=== PATIENT | male | born 1955 | race Caucasian/White ===

== ENCOUNTER 2017-11-18 18:21 | Emergency (ER) | payer SELFPAY ==
[~2017-11-18 18:21] MED LIST: ALPR-429 PO; ONDA4TAB97 PO; OXYC-865 PO; PANT40SU3 PO; QUET400T11 PO
[2017-11-18] MEDS ORDERED: ALPR-429 PO (18:33)
[2017-11-18] MEDS ORDERED: QUET200T29 PO (18:33)
[2017-11-18] MEDS ORDERED: NS(*) 0.9% 1000 ML BAG 1,000 ML IV ONE (18:48)
[2017-11-18] MEDS ORDERED: fentaNYL CITR 100 MCG/2 ML AMP IVP ONE (18:50)
--- NOTE | 2017-11-18 18:52 | ER Report ---
History and Physical Time Seen By MD: 18:37 Hx. of Stated Complaint: PATIENT STATES THAT HE HAS ALOT OF PAIN IN HIS KIDNEY AND PELVIC AREA HPI/ROS CHIEF COMPLAINT: Right flank pain HISTORY OF PRESENT ILLNESS: 62-year-old male patient presents to emergency room with complaint of right flank pain. Patient states that he's been having this pain starting today. States the pain is an 8 out of 10. He denies having any fevers or chills. Patient states that he does have a history of kidney stones. He states that he had a partial nephrectomy in 1997 due to the kidney stones. Patient states he does not believe that he has any stones in his ureters just in his kidney. He denies having any nausea, vomiting or diarrhea. Patient has taken any medication for this. He has had a prescription for narcotic pain medicines in the past, however he is not having currently. Patient does have a urologist that he sees in [place]. Patient states that he had a CT scan approximately one month ago. He states that CT scan showed some "multiple holes " in his pelvis. REVIEW OF SYSTEMS: Respiratory: No cough, no dyspnea. Cardiovascular: No chest pain, no palpitations. Gastrointestinal: No vomiting, no abdominal pain. Musculoskeletal: As noted above Allergies: Coded Allergies: shellfish derived (Verified Allergy, Unknown, 11/18/17) morphine (Verified Adverse Reaction, Severe, ITCHING/ YELLING, 06/11/16) Home Meds Active Scripts Ondansetron (ZOFRAN ODT) 4 Mg Tab.rapdis, 4 MG PO Q6H Y for NAUSEA/VOMITING, # 20 TAB.KIM Prov:KINGSTON LEE 11/18/17 Blood-Glucose Meter, Drum-Type (ACCU-CHEK) 1 Each Kit, EACH MC DAILY, #1 Prov:KNIGSTON LEE 11/18/17 Azithromycin 250 Mg Tab (AZITHROMYCIN 250 MG TAB) 250 Mg Tablet, 1 TAB PO QDAY, #6 TAB Take 2 tabs today and then 1 tab a day until gone. Prov:KINGSTON LEE 11/18/17 Metformin Hcl (METFORMIN HCL) 500 Mg Tablet, 1 TAB PO BID, #60 TAB Prov:KINGSTON LEE 11/18/17 Oxycodone Hcl/Acetaminophen (PERCOCET 5-325 MG TABLET) 1 Each Tablet, 1 EACH PO Q4-6H Y for PAIN, #8 TAB Prov:KINGSTON LEE BUILDING [employer]PENTER 11/18/17 Reported Medications Alprazolam (XANAX) 0.5 Mg Tablet, 1 MG PO TID, TAB 11/18/17 Quetiapine Fumarate (SEROQUEL) 200 Mg Tablet, 200 MG PO 11/18/17 Pantoprazole Sodium (PROTONIX) 40 Mg Granpkt.dr, 40 MG PO QDAY, PACK 06/11/16 Discontinued Reported Medications Alprazolam (XANAX) 0.5 Mg Tablet, 1 TAB PO TID, TAB 06/11/16 Quetiapine Fumarate (SEROQUEL) 400 Mg Tablet, 600 MG PO HS 06/11/16 Discontinued Scripts Ondansetron Hcl (ZOFRAN) 4 Mg Tablet, 4 MG PO Q6H Y for NAUSEA/VOMITING, #10 Prov:SANDRA BORJAS DO 06/11/16 Oxycodone Hcl/Acetaminophen (PERCOCET 5-325 MG TABLET) 1 Each Tablet, 1 EACH PO Q4-6H Y for PAIN, #15 Prov:SANDRA BORJAS DO 06/11/16 Past Medical/Surgical History Patient has a past medical history of a GI bleed, kidney stones, bipolar. Patient has surgical history of partial nephrectomy. Reviewed Nurses Notes: Yes Hx Substance Use Disorder: No Hx Alcohol Use: No Constitutional Vital Sign - Last 24 Hours 11/18/17 11/18/17 11/18/17 11/18/17 18:26 18:30 18:45 19:00 Temp 98.7 Pulse 117 111 113 123 Resp 17 B/P (MAP) 137/92 144/93 (110) 152/101 (118) Pulse Ox 94 94 93 92 O2 Delivery Room Air 11/18/17 11/18/17 11/18/17 11/18/17 19:15 19:30 19:45 19:53 Temp 99.9 Pulse 113 106 ??? B/P (MAP) 154/96 (115) Pulse Ox 91 93 11/18/17 11/18/17 11/18/17 20:00 20:15 20:30 Pulse ??? 89 92 B/P (MAP) 168/98 (121) 140/86 (104) Pulse Ox 91 91 90 Intake and Output 11/18/17 11/18/17 11/19/17 14:59 22:59 06:59 Intake Total 1000 ml Balance 1000 ml Physical Exam General Appearance: The patient is alert, has no immediate need for airway protection and no current signs of toxicity. ENT: Tympanic membranes are pearly-florez, auditory canals are patent, mucous membranes are moist. Respiratory: Chest is non tender, lungs are clear to auscultation. Cardiac: regular rate and rhythm Gastrointestinal: Abdomen is soft and non tender, no masses, bowel sounds normal. Patient does have tenderness to the right flank. Musculoskeletal: Neck: Neck is supple and non tender. Extremities have full range of motion and are non tender. Skin: No rashes or lesions. DIFFERENTIAL DIAGNOSIS: After history and physical exam differential diagnosis was considered for flank pain including but not limited to musculoskeletal causes, kidney stone, pyelonephritis, shingles, and intra-abdominal causes such as diverticulitis and appendicitis. Medical Decision Making Data Points Result Diagram: 11/18/17190911/[id number]/171909 Laboratory Hematology Test 11/18/17 18:27 11/18/17 19:10 Urine Color Yellow Urine Clarity Clear Urine pH 6.0 pH (4.8-9.5) Urine Specific [place] 1.014 Urine Protein Negative mg/dL (NEGATIVE) Urine Glucose (UA) 500 mg/dL (NEGATIVE) Urine Ketones Trace mg/dL (NEGATIVE) Urine Blood Small (NEGATIVE) Urine Nitrite Negative (NEGATIVE) Urine Bilirubin Negative (NEGATIVE) Urine Urobilinogen 2.0 mg/dL (0.2-1.9) Urine Leukocyte Esterase Negative (NEGATIVE) Urine RBC 7 /HPF (0-2/HPF) Urine WBC 2 /HPF (0-5/HPF) Urine Squamous Epithelial Cells None /LPF (</=FEW) Urine Bacteria Negative /HPF (NONE-FEW) Urine Mucus None /HPF (NONE-FEW) Red Blood Count 4.86 M/uL (4.00-5.60) Mean Corpuscular Volume 81.6 fL (80.0-96.0) Mean Corpuscular Hemoglobin 27.8 pg (26.0-33.0) Mean Corpuscular Hemoglobin Concent 34.0 g/dL (32.0-36.0) Red Cell Distribution Width 16.1 % (11.5-14.5) Mean Platelet Volume 7.9 fL (7.2-11.1) Neutrophils (%) (Auto) 87.2 % (39.4-72.5) Lymphocytes (%) (Auto) 8.2 % (17.6-49.6) Monocytes (%) (Auto) 4.3 % (4.1-12.4) Eosinophils (%) (Auto) 0.1 % (0.4-6.7) Basophils (%) (Auto) 0.2 % (0.3-1.4) Nucleated RBC Relative Count (auto) 0.0 /100WBC Neutrophils # (Auto) 7.1 K/uL (2.0-7.4) Lymphocytes # (Auto) 0.7 K/uL (1.3-3.6) Monocytes # (Auto) 0.3 K/uL (0.3-1.0) Eosinophils # (Auto) 0.0 K/uL (0.0-0.5) Basophils # (Auto) 0.0 K/uL (0.0-0.1) Nucleated RBC Absolute Count (auto) 0.00 K/uL Erythrocyte Sedimentation Rate 11 mm/HOUR (0-20) Sodium Level 140 mmol/L (137-145) Potassium Level 3.7 mmol/L (3.5-5.0) Chloride Level 103 mmol/L (98-107) Carbon Dioxide Level 24 mmol/L (22-30) Blood Urea Nitrogen 8 mg/dl (9-21) Creatinine 0.90 mg/dl (0.66-1.25) Glomerular Filtration Rate Calc > 60.0 Random Glucose 215 mg/dl (75-110) Calcium Level 9.6 mg/dl (8.4-10.2) Total Bilirubin 0.5 mg/dl (0.2-1.3) Aspartate Amino Transf (AST/SGOT) 26 U/L (0-35) Alanine Aminotransferase (ALT/SGPT) 25 U/L (0-56) Alkaline Phosphatase 66 U/L (0-126) C-Reactive Protein 5.3 mg/dl (<1.0) Total Protein 7.1 gm/dl (6.3-8.2) Albumin 3.5 g/dl (3.5-5.0) Chemistry Test 11/18/17 18:27 11/18/17 19:10 Urine Color Yellow Urine Clarity Clear Urine pH 6.0 pH (4.8-9.5) Urine Specific [place] 1.014 Urine Protein Negative mg/dL (NEGATIVE) Urine Glucose (UA) 500 mg/dL (NEGATIVE) Urine Ketones Trace mg/dL (NEGATIVE) Urine Blood Small (NEGATIVE) Urine Nitrite Negative (NEGATIVE) Urine Bilirubin Negative (NEGATIVE) Urine Urobilinogen 2.0 mg/dL (0.2-1.9) Urine Leukocyte Esterase Negative (NEGATIVE) Urine RBC 7 /HPF (0-2/HPF) Urine WBC 2 /HPF (0-5/HPF) Urine Squamous Epithelial Cells None /LPF (</=FEW) Urine Bacteria Negative /HPF (NONE-FEW) Urine Mucus None /HPF (NONE-FEW) White Blood Count 8.2 k/uL (4.5-11.0) Red Blood Count 4.86 M/uL (4.00-5.60) Hemoglobin 13.5 g/dL (14.0-18.0) Hematocrit 39.7 % (42.0-52.0) Mean Corpuscular Volume 81.6 fL (80.0-96.0) Mean Corpuscular Hemoglobin 27.8 pg (26.0-33.0) Mean Corpuscular Hemoglobin Concent 34.0 g/dL (32.0-36.0) Red Cell Distribution Width 16.1 % (11.5-14.5) Platelet Count 175 K/uL (150-450) Mean Platelet Volume 7.9 fL (7.2-11.1) Neutrophils (%) (Auto) 87.2 % (39.4-72.5) Lymphocytes (%) (Auto) 8.2 % (17.6-49.6) Monocytes (%) (Auto) 4.3 % (4.1-12.4) Eosinophils (%) (Auto) 0.1 % (0.4-6.7) Basophils (%) (Auto) 0.2 % (0.3-1.4) Nucleated RBC Relative Count (auto) 0.0 /100WBC Neutrophils # (Auto) 7.1 K/uL (2.0-7.4) Lymphocytes # (Auto) 0.7 K/uL (1.3-3.6) Monocytes # (Auto) 0.3 K/uL (0.3-1.0) Eosinophils # (Auto) 0.0 K/uL (0.0-0.5) Basophils # (Auto) 0.0 K/uL (0.0-0.1) Nucleated RBC Absolute Count (auto) 0.00 K/uL Erythrocyte Sedimentation Rate 11 mm/HOUR (0-20) Glomerular Filtration Rate Calc > 60.0 Calcium Level 9.6 mg/dl (8.4-10.2) Total Bilirubin 0.5 mg/dl (0.2-1.3) Aspartate Amino Transf (AST/SGOT) 26 U/L (0-35) Alanine Aminotransferase (ALT/SGPT) 25 U/L (0-56) Alkaline Phosphatase 66 U/L (0-126) C-Reactive Protein 5.3 mg/dl (<1.0) Total Protein 7.1 gm/dl (6.3-8.2) Albumin 3.5 g/dl (3.5-5.0) Urinalysis Test 11/18/17 18:27 Urine Color Yellow Urine Clarity Clear Urine pH 6.0 pH (4.8-9.5) Urine Specific [place] 1.014 Urine Protein Negative mg/dL (NEGATIVE) Urine Glucose (UA) 500 mg/dL (NEGATIVE) Urine Ketones Trace mg/dL (NEGATIVE) Urine Blood Small (NEGATIVE) Urine Nitrite Negative (NEGATIVE) Urine Bilirubin Negative (NEGATIVE) Urine Urobilinogen 2.0 mg/dL (0.2-1.9) Urine Leukocyte Esterase Negative (NEGATIVE) Urine RBC 7 /HPF (0-2/HPF) Urine WBC 2 /HPF (0-5/HPF) Urine Squamous Epithelial Cells None /LPF (</=FEW) Urine Bacteria Negative /HPF (NONE-FEW) Urine Mucus None /HPF (NONE-FEW) EKG/Imaging Imaging EXAMINATION: CT ABDOMEN AND PELVIS WITHOUT CONTRAST COMPARISON: [facility] 04/30/2016 HISTORY: Flank pain. PROCEDURE: Multiplanar noncontrast CT of the abdomen and pelvis. One of the following dose optimization techniques was utilized in the performance of this exam: Automated exposure control; adjustment of the mA and/or kV according to the patient's size; or use of an iterative reconstruction technique. Specific details can be referenced in the facility's radiology CT exam operational policy. FINDINGS: Evaluation of the solid and viscus parenchymal organs and vascular structures is limited without the benefit of IV contrast. Visualized thorax: Lung base hyperexpansion with indistinct interstitial thickening greatest in the visualized lingula and left lower lobe. Small hiatal hernia with a metallic foreign body near the gastroesophageal junction. Liver: Hepatomegaly. Gallbladder and biliary system: Probable noncalcified gallstone. No pericholecystic inflammation. Spleen: Homogeneously enlarged 17 cm spleen. Pancreas: Noncontrast imaging of the pancreas is within normal limits. Adrenal glands: Negative. Kidneys and bladder: 2.6 x 2.1 x 0.8 cm hyperdense region along the inferior pole. 7 mm calcification within the adjacent inferior pole could either be a cortical calcification or a nonobstructing distal stone. No other radiopaque urolithiasis as on the right and there is no evidence of right-sided hydronephrosis. Two 3 mm nonobstructing stones in the left kidney. No left- sided radiopaque ureteral stone or hydronephrosis. Urinary bladder is within normal limits. Vessels: Moderate aortoiliac atherosclerosis. No abdominal aortic aneurysm. Small venous collaterals in the upper abdomen. Bowel and mesentery: Hiatal hernia is noted above. No gastric distention. No small bowel obstruction. Unremarkable retrocecal appendix. Small amount of stool in the colon. No definite noncontrast CT evidence of bowel inflammation. Mild mesenteric root edema. Pelvic organs: Negative. Lymph nodes: Numerous small mesenteric root lymph nodes. No pathologically enlarged lymph nodes. Free air/free fluid: Very minimal simple appearing free fluid in the dependent pelvis. No measurable fluid collection. No pneumoperitoneum. Abdominal wall and osseous structures: Abdominal wall is intact. Diffuse sclerosis of the osseous structures IMPRESSION: 1. No radiopaque ureteral stone or evidence of an obstructive uropathy. 2. Bilateral nonobstructing nephrolithiasis. 3. Hyperdense material along the right kidney inferior pole is unchanged and consistent with a remote partial nephrectomy. 4. Small hiatal hernia with a radiopaque foreign body. The appearance is suggestive of an endoscopy clip although correlation with an appropriate procedural history is recommended. 5. Unchanged hepatosplenomegaly and small upper abdominal venous collaterals. Correlation with any history of hepatocellular disease and portal hypertension is recommended. 6. Nonspecific mild mesenteric edema is unchanged since 2016 and is of questionable significance. 7. Diffuse sclerosis of the bony structures is minimally changed since 2016 and could be either metabolic or metastatic. 8. Left lung base indistinct peribronchial inflammation and subtle tree-in-bud density suggestive of an infectious bronchiolitis. Results were discussed with KINGSTON LEE at 11/18/2017 8:16 PM. Report Dictated By: Jose Redd MD at 11/18/2017 8:04 PM Report E-Signed By: Jose Redd MD at 11/18/2017 8:28 PM ED Course/Re-evaluation ED Course Patient was admitted to exam room, history and physical were obtained. Differential diagnoses were considered. On examination patient had tenderness to the right flank area. An IV was started, a CBC, CMP were obtained. Urinalysis was obtained which showed small amounts of blood in his urine, also showed 500 glucose in his urine. CMP showed a blood glucose of 205. His CRP was elevated at 3. A CT scan of the abdomen and pelvis was done without contrast, as the patient does have an allergy to shellfish. Images show patient has lots of chronic findings, however nothing new. Patient did have some inflammation in the base of his left lung which was new when compared with images from 2016. I discussed the findings with the patient. I informed him that his CT scan was basically unchanged except for the infection in the lungs. We will go ahead and treat him with azithromycin. I also informed the patient that he has new onset type 2 diabetes. We will ahead and treat him with metformin. Patient will be discharged home at this time, he received a prescription for Percocet as needed for pain, glucometer, metformin, Zofran. He is to follow-up with his primary care provider when he returns to [place]. He is to also follow-up with his urologist. I encouraged him to stop at an ER when he is in route to [place] if he has any problems. Patient verbalized understanding and agreement with plan. Decision to Disposition Date: November 18, 2017 Decision to Disposition Time: 20:37 Depart Departure Latest Vital Signs Vital Signs Date Time Temp Pulse Resp B/P (MAP) Pulse Ox O2 Delivery O2 Flow Rate FiO2 11/18/17 20:30 92 140/86 (104) 90 11/18/17 19:53 99.9 11/18/17 18:26 17 Room Air Impression: Primary Impression: Right flank pain Additional Impressions: History of kidney stones Diabetes Bronchitis Condition: Improved Disposition: HOME OR SELF-CARE New Scripts Ondansetron (ZOFRAN ODT) 4 Mg Tab.rapdis 4 MG PO Q6H Y for NAUSEA/VOMITING, #20 TAB.KIM Prov: KINGSTON LEE 11/18/17 Blood-Glucose Meter, Drum-Type (ACCU-CHEK) 1 Each Kit EACH MC DAILY, #1 Prov: KINGSTON LEE 11/18/17 Azithromycin 250 Mg Tab (AZITHROMYCIN 250 MG TAB) 250 Mg Tablet 1 TAB PO QDAY, #6 TAB Take 2 tabs today and then 1 tab a day until gone. Prov: KINGSTON LEE 11/18/17 Metformin Hcl (METFORMIN HCL) 500 Mg Tablet 1 TAB PO BID, #60 TAB Prov: KINGSTON LEE 11/18/17 Oxycodone Hcl/Acetaminophen (PERCOCET 5-325 MG TABLET) 1 Each Tablet 1 EACH PO Q4-6H Y for PAIN, #8 TAB Prov: KINGSTON LEE 11/18/17 Patient Instructions: Flank Pain (ED), Type 2 Diabetes in Adults (ED) Additional Instructions: Increase fluid intake. Get plenty of rest. Follow up with your primary care provider, you have diabetes and need to start on oral medications for that. We will start you on Metformin to help with your blood sugar. Limit activity by pain. Follow up with Urology when you return home. Go to an ER if you have any problems in route to home. Problem Qualifiers Additional Impressions: Diabetes Diabetes mellitus type: type 2 Diabetes mellitus fdc insulin use: unspecified manager intermediate insulin use status Diabetes mellitus complication status : with unspecified complications Qualified Codes: E11.8 - Type 2 diabetes mellitus with unspecified complications KINGSTON LEE November 18, 2017 18:52
[2017-11-18 19:26] LABS: PLATELET COUNT, AUTOMATED 175 K/uL (150-450)
[2017-11-18] MEDS ORDERED: HYDROmorphone* 1 MG/ML 1 MG/ML ML IVP ONE (19:40)
[2017-11-18 20:30] VITALS: BP 140/86
[2017-11-18] MEDS ORDERED: OXYC-865 PO (20:33)
[2017-11-18] MEDS ORDERED: METF-410 PO (20:33)
[2017-11-18] MEDS ORDERED: [UNRECOGNIZED DRUG - CODE] MC (20:33)
[2017-11-18] MEDS ORDERED: AZIT-18 PO (20:33)
--- NOTE | 2017-11-18 20:33 | RADIOLOGY IMAGING REPORT ---
[place] [facility] [place] Jeremy [place] : 1955 MR: [id number] V: [id number] EXAM DATE: ORDERING PHYSICIAN: KINGSTON LEE TECHNOLOGIST: Location: [facility] Patient: Jeremy Saul : 1955 Visit/Account:[id number] Date of Sevice: 11/18/2017 EXAMINATION: CT ABDOMEN AND PELVIS WITHOUT CONTRAST COMPARISON: [facility] 04/30/2016 HISTORY: Flank pain. PROCEDURE: Multiplanar noncontrast CT of the abdomen and pelvis. One of the following dose optimizati on techniques was utilized in the performance of this exam: Automated exposure control; adjustment of the mA and/or kV according to the patient's size; or use of an iterative reconstruction technique. Specific details can be referenced in the facility's radiology CT exam operational policy. FINDINGS: Evaluation of the solid and viscus parenchymal organs and vascular structures is limited wi thout the benefit of IV contrast. Visualized thorax: Lung base hyperexpansion with indistinct interstitial thickening greatest in the v isualized lingula and left lower lobe. Small hiatal hernia with a metallic foreign body near the latoya roesophageal junction. Liver: Hepatomegaly. Gallbladder and biliary system: Probable noncalcified gallstone. No pericholecystic inflammation. Spleen: Homogeneously enlarged 17 cm spleen. Pancreas: Noncontrast imaging of the pancreas is within normal limits. Adrenal glands: Negative. Kidneys and bladder: 2.6 x 2.1 x 0.8 cm hyperdense region along the inferior pole. 7 mm calcification within the adjacent inferior pole could either be a cortical calcification or a nonobstructing dista l stone. No other radiopaque urolithiasis as on the right and there is no evidence of right-sided hyd ronephrosis. Two 3 mm nonobstructing stones in the left kidney. No left-sided radiopaque ureteral sto ne or hydronephrosis. Urinary bladder is within normal limits. Vessels: Moderate aortoiliac atherosclerosis. No abdominal aortic aneurysm. Small venous collaterals in the upper abdomen. Bowel and mesentery: Hiatal hernia is noted above. No gastric distention. No small bowel obstruction. Unremarkable retrocecal appendix. Small amount of stool in the colon. No definite noncontrast CT vickie dence of bowel inflammation. Mild mesenteric root edema. Pelvic organs: Negative. Lymph nodes: Numerous small mesenteric root lymph nodes. No pathologically enlarged lymph nodes. Free air/free fluid: Very minimal simple appearing free fluid in the dependent pelvis. No measurable fluid collection. No pneumoperitoneum. Abdominal wall and osseous structures: Abdominal wall is intact. Diffuse sclerosis of the osseous str uctures IMPRESSION: 1. No radiopaque ureteral stone or evidence of an obstructive uropathy. 2. Bilateral nonobstructing nephrolithiasis. 3. Hyperdense material along the right kidney inferior pole is unchanged and consistent with a remote partial nephrectomy. 4. Small hiatal hernia with a radiopaque foreign body. The appearance is suggestive of an endoscopy c lip although correlation with an appropriate procedural history is recommended. 5. Unchanged hepatosplenomegaly and small upper abdominal venous collaterals. Correlation with any hi story of hepatocellular disease and portal hypertension is recommended. 6. Nonspecific mild mesenteric edema is unchanged since 2016 and is of questionable significance. 7. Diffuse sclerosis of the bony structures is minimally changed since 2016 and could be either metab olic or metastatic. 8. Left lung base indistinct peribronchial inflammation and subtle tree-in-bud density suggestive of an infectious bronchiolitis. Results were discussed with KINGSTON LEE at 11/18/2017 8:16 PM. Report Dictated By: Jose Redd MD at 11/18/2017 8:04 PM Report E-Signed By: Jose Redd MD at 11/18/2017 8:28 PM WSN:[id number]
[2017-11-18] MEDS ORDERED: ONDA4TAB PO (20:39)
[2017-11-18] MEDS ORDERED: oxyCODONE/ACETAMIN 5/325MG TH 2 TAB/BOTTLE PO ONE (20:55)
== END 2017-11-18 21:01 | disposition home or self-care (01) ==
LOC: ER 18:45
DX: E11.8 Type 2 diabetes mellitus with unspecified complications (principal); J40 Bronchitis, not specified as acute or chronic; Z87.442 Personal history of urinary calculi; N20.0 Calculus of kidney; K44.9 Diaphragmatic hernia without obstruction or gangrene; R16.2 Hepatomegaly with splenomegaly, not elsewhere classified
CPT/HCPCS: 74176; 81001; 85025; 85651; 86140; 96361; 96374; 96375; 99284; J1170; J3010; J7030; 82040; 82247; 82310; 82374; 82435; 82565; 82947; 84075; 84132; 84155; 84295; 84450; 84460; 84520